=== PATIENT | female | born 1955 | race Caucasian/White ===

== ENCOUNTER 2021-08-16 10:52 | Outpatient (CLI) | payer MEDICARE, OTHER, SELFPAY ==
[2021-08-16 16:16] LABS: Chloride* 104 mmol/L (96-114); Potassium* 4.2 mmol/L (3.6-5.1); Sodium* 142 mmol/L (135-149)
[2021-08-16 16:18] LABS: Cholesterol* 232 mg/dL (90-199); Creatinine* 0.9 mg/dL (0.5-1.5); Estimated Glomerular Filt Rate 70.07
[2021-08-16 16:19] LABS: Blood Urea Nitrogen* 34 mg/dL (7-30); Carbon Dioxide* 33 mmol/L (20-32); Glucose* 100 mg/dL (60-115); Triglycerides* 192 mg/dL (40-149)
[2021-08-16 16:20] LABS: HDL Cholesterol* 63 mg/dL (>=50); LDL Cholesterol Calculated 131 mg/dL (<100)
== END 2021-08-16 10:53 | disposition home or self-care (01) ==
PROVIDERS: PCP Family Medicine; Visit Provider Family Medicine
DX: I10 Essential (primary) hypertension (principal); G47.33 Obstructive sleep apnea (adult) (pediatric); J30.9 Allergic rhinitis, unspecified
CPT/HCPCS: 36415; 80048; 80061

== ENCOUNTER 2022-04-23 16:06 | Outpatient (CLI) | payer MEDICARE, OTHER, SELFPAY | END 2022-04-23 16:07 | disposition home or self-care (01) | LOC: AMB 04-29 12:04 | PROVIDERS: PCP Family Medicine; Visit Provider Family Medicine | DX: R53.1 Weakness (principal) | CPT/HCPCS: A0998 ==

== ENCOUNTER 2022-06-07 11:51 | Outpatient (CLI) | payer MEDICARE, OTHER, SELFPAY | END 2022-06-07 11:52 | disposition home or self-care (01) | PROVIDERS: PCP Family Medicine; Visit Provider Family Medicine | DX: Z01.419 Encounter for gynecological examination (general) (routine) without abnormal findings (principal); I10 Essential (primary) hypertension | CPT/HCPCS: 80048; 80061 ==

== ENCOUNTER 2022-06-25 13:03 | Outpatient (RCR) | payer MEDICARE, OTHER, SELFPAY ==
--- NOTE | 2022-06-25 14:01 | PT.OPEX ---
PT [facility] Outpatient Eval PT [facility] Outpatient Eval Start: 06/25/22 08:45 Freq: Status: Active Protocol: Document 06/25/22 13:04 FARAZ (Rec: 06/25/22 13:16 FARAZ [id number]) E-signed By Cheryl Thomas PT Physical Therapy Outpatient Evaluation Insurance Information Insurance Name Medicare B,Other; See Comments Insurance Information/Comments [facility] [place] Medical Diagnosis Adhesive capsulitis of left shoulder Treating Diagnosis Left shoulder pain, limited shoulder ROM, gross UE weakness Referring Juan Carlos James Subjective Subjective Zuleyka reports to PT with primary complaint of left shoulder pain following a fall at 's 04/07/22. Drea fell directly on her left shoulder on mar and notes she felt and heard a pop in her shoulder. She was not evaluated following this as she was dealing with the of her but now having significant difficulty lifting, pushing, pulling or putting any weight on left shoulder such as sleeping on left side. She notes some tingling down into her left hand and radiating symptoms up into her neck. She has not had any imaging at this time. She notes shoulder has not gotten any better with use of ice/heat and combination of ibuprofen/tylenol and starting to feel worse. She is in the process of moving [place] [facility] and is very limited by what she can move/lift. PMH: depression, hypertension, breast cancer, respiratory problems, arthritis Pain Comments 08/26 worst Date of Last Physician Visit 06/07/22 Current Work Status Retired Objective Other/Pertinent Objective Standing UE AROM/PROM (R): -ER0: 51/50 -Abd: 62/65 -FF: 71/75 with pain upon lowering -Functional IR: sacrum -Functional ER: occiput Pain to palpation proximal shaft of humerus/anterior and lateral deltoid Intact to light touch throughout UE and hand Spurling: - Drop arm: + Belly press: - ER lag: - Assessment Assessment/Impression Patient is a 66 year old female presenting to physical therapy for evaluation and treatment of left shoulder pain following direct fall onto left shoulder 04/07/22 without medical work-up at the time. Patient presents with significantly limited and painful shoulder AROM and PROM , pain and gross weakness, N/T throughout left hand, significant tenderness to palpation throughout proximal UE. These impairments are limiting the patients ability to reach overhead, lift, sweep , wash hair. Patient referred today to have assessment by orthopedics for potential imaging to rule out fracture and/or RC tearing. PT will resume once evaluated by orthopedic surgeon. Patient in agreeance with plan and would just like to rid herself of pain. Primary Functional Limitations reach overhead, lift, sweep, wash hair Plan of Care Rehabilitation Potential Good Physical Therapy Goals Once evaluated by orthopedics: In 6 weeks (08/06/22) Patient demonstrates at least 140 degrees of shoulder flexion for ability to reach overhead into a high shelf, dress, and bathe without limitation. patient is able to sleep, including on shoulder, with waking 0-1 times per night In 12 weeks (08/17/22) Pt will exhibit 15-20 point improvement in QuickDASH Outcome measure to demonstrate functional improvement and progress towards goals. Pt will exhibit RC, GH, and periscapular strength no less than 4+/5 in order to perform sprinkler tender such as sweeping and moving Treatment Plan/Direct Interventions Ice/Cold/Vasopneumatic,Joint Mobilization,Manual Therapy, Neuromuscular Re-ed,Self-Care/ Home Management,Therapeutic Activities,Therapeutic Exercises Frequency/Duration 1x/wk for 2-4 weeks with every other week until goals acheived Patient Will Be Discharged From Therapy Completion of LTG(s), Independent w/HEP, Independently Progressing Evaluation Billing Untimed Code Treatment Minutes 22 Complexity Low Certification Information Initial Certification Date 06/25/22 Ending Certification Date 09/19/22 Provider Signature Shows Agreement With POC & Medical Necessity Physician Signature & Date Requested Please Sign/Date Here Physician Comment/Change : Physician NPI Number #
== END 2022-10-23 23:59 | disposition home or self-care (01) ==
PROVIDERS: PCP Family Medicine; Visit Provider Family Medicine
DX: M75.02 Adhesive capsulitis of left shoulder (principal); M25.512 Pain in left shoulder; Z74.09 Other reduced mobility; R53.1 Weakness; Z51.89 Encounter for other specified aftercare
CPT/HCPCS: 97161